=== PATIENT | female | born 1985 | race Two or more races ===

== ENCOUNTER 2017-05-23 11:21 | Inpatient (IN) | payer OTHER ==
[~2017-05-23] VITALS: Ht 160 cm; Wt 1.8 kg
[2017-05-23] MEDS ORDERED: PRENATAL TABLE1 EAC1 (12:36)
[2017-05-23] MEDS ORDERED: PRENATAL TABLE1 EAC1 PO (12:38)
[2017-05-23] MEDS ORDERED: IRON PO (12:39)
[2017-05-26] MEDS ORDERED: SURFAK240 M1 PO (14:16)
[2017-05-26] MEDS ORDERED: IBUPROFEN800 MG PO (14:16)
== END 2017-05-26 15:40 | DRG 765 ==
LOC: LDR 11:21 → O/R 15:16 → LDR 15:16 → O/R 15:16 → OB/GYN 15:56 → LDR 17:23 → OB/GYN 05-24 21:10
PROVIDERS: Obstetrics & Gynecology
PROC: 4A1HXCZ Monitoring of Products of Conception, Cardiac Rate, External Approach (ICD-10-PCS; 2017-05-23)
PROC: 4A033R1 Measurement of Arterial Saturation, Peripheral, Percutaneous Approach (ICD-10-PCS; 2017-05-23)
PROC: 10D00Z1 Extraction of Products of Conception, Low, Open Approach (ICD-10-PCS; principal; 2017-05-23 13:00)
PROC: B52SYZZ Computerized Tomography (CT Scan) of Bilateral Pulmonary Veins using Other Contrast (ICD-10-PCS; 2017-05-24)
PROC: B52 Imaging, Veins, Computerized Tomography (CT Scan) (ICD-10-PCS; 2017-05-24)
PROC: BB24ZZZ Computerized Tomography (CT Scan) of Bilateral Lungs (ICD-10-PCS; 2017-05-24)
PROC: BB24YZZ Computerized Tomography (CT Scan) of Bilateral Lungs using Other Contrast (ICD-10-PCS; 2017-05-24)
DX: O32.1XX0 Maternal care for breech presentation, not applicable or unspecified (principal); O14.93 Unspecified pre-eclampsia, third trimester; O41.03X0 Oligohydramnios, third trimester, not applicable or unspecified; O36.5930 Maternal care for other known or suspected poor fetal growth, third trimester, not applicable or unspecified; O76 Abnormality in fetal heart rate and rhythm complicating labor and delivery; Z3A.36 36 weeks gestation of pregnancy; Z37.0 Single live birth; R09.02 Hypoxemia